=== PATIENT | male | born 1965 | race Caucasian/White ===

== ENCOUNTER 2017-04-05 18:01 | Emergency (ER) | payer OTHER ==
--- NOTE | 2017-04-05 19:54 | EDPHY ---
H & P Time Seen by Provider: 04/05/17 19:37 HPI/ROS: CHIEF COMPLAINT: Single episode of blood in stool HISTORY OF PRESENT ILLNESS: Patient had a bowel movement tonight and had bright red blood in the toilet bowl. It was painless. No abdominal pain or rectal pain. No nausea or vomiting. No easy bruising or bruising with teeth brushing. REVIEW OF SYSTEMS: Eye: no change in vision ENT: no sore throat Cardiac: no chest pain or syncope Pulmonary: no cough or SOB Abdomen: No vomiting. Musculoskeletal: no back pain Skin: no rash or bruising Neuro: no headache Constitutional: no fever : no urinary symptoms A comprehensive 10 point review of systems is otherwise negative aside from elements mentioned in the history of present illness. PAST MEDICAL HISTORY: Negative Social history: No local PCP General Appearance: Alert and conversant, cooperative. Eyes: No scleral icterus. ENT, Mouth: Normal mucous membranes. Respiratory: Normal respiratory effort, breath sounds equal, lungs are clear to auscultation. Cardiovascular: Regular rate and rhythm. Gastrointestinal: Abdomen is soft and non tender. Rectal exam with anoscopy shows no bleeding proximal to the scope with inflamed internal hemorrhoid. Neurological: Alert and ambulatory. Skin: Warm and dry, no rashes. No bruising or purpura. Musculoskeletal: No peripheral edema and no joint swelling. Psychiatric: Not agitated. Emergency Department course/MDM: Likely bleeding inflamed internal hemorrhoid. I think the likelihood of acute lower GI or upper GI bleed or coagulopathy is unlikely. CBC performed. GI referral for follow-up as well as his screening colonoscopy, recommended to be seen within the next 1-2 weeks. Smoking Status: Never smoked Constitutional: Initial Vital Signs Heart Rate 72 04/05/17 18:03 Respiratory Rate 14 04/05/17 18:03 Blood Pressure 144/91 H 04/05/17 18:03 O2 Sat (%) 95 04/05/17 18:03 O2 Delivery Mode Room Air Allergies/Adverse Reactions: No Known Allergies Allergy (Unverified 03/19/15 06:30) Home Medications: Medication Instructions Recorded Tramadol HCl 50 mg PO 03/19/15 Departure - Departure Disposition: Home, Routine, Self-Care Clinical Impression: Internal hemorrhoid, bleeding Condition: Good Instructions: Rectal Bleeding (ED), Hemorrhoids (ED) Referrals: Rafael Guevara MD, FACG [Medical Doctor] - 5-7 days, call for appt. ( Gastroenterology referral for follow-up.)
[2017-04-05 20:00] LABS: % IMMATURE GRANULYOCYTES 0.2 % (0.0-1.1); ABSOLUTE IMMATURE GRANULOCYTES 0.01 10^3/uL (0.00-0.10); ADD DIFF? NO; ADD MORPH? NO; ADD SCAN? NO; ATYPICAL LYMPHOCYTE FLAG 20 (0-99); FRAGMENT RBC FLAG 0 (0-99); HEMATOCRIT 47.1 % (40.0-51.0); LEFT SHIFT FLG 0 (0-99); LIPEMIA HEMOLYSIS FLAG 90 (0-99); MEAN CELL HEMOGLOBIN 31.4 pg (27.9-34.1); MEAN CELL HEMOGLOBIN CONCENTR. 36.1 g/dL (32.4-36.7); MEAN CELL VOLUME 86.9 fL (81.5-99.8); MEAN PLATELET VOLUME 9.6 fL (8.7-11.7); PLATELET CLUMPS FLAG 0 (0-99); PLATELET COUNT 214 10^3/uL (150-400); RED BLOOD CELL COUNT 5.42 10^6/uL (4.40-6.38); RED CELL DISTRIBUTION WIDTH 12.8 % (11.5-15.2)
[2017-04-05 20:29] VITALS: BP 145/95; PULSE 70; RESP 20; TEMP 98.4; O2SAT 96
== END 2017-04-05 20:31 | disposition home or self-care (01) ==
DX: K64.8 Other hemorrhoids (principal)